=== PATIENT | male | born 1975 | race Caucasian/White ===

== ENCOUNTER 2016-10-02 15:00 | Emergency (ER) | payer OTHER ==
[~2016-10-02] VITALS: Ht 177.8 cm; Wt 130.9 kg
[2016-10-02 15:50] LABS: ADD MIUA? YES; BILIRUBIN NEGATIVE; BLOOD NEGATIVE; COLOR YELLOW ((YELLOW)); GLUCOSE (STRIP) NEGATIVE; KETONES NEGATIVE; LEUKOCYTES NEGATIVE; NITRITE NEGATIVE; PROTEIN (STRIP) 100; SPECIFIC GRAVITY 1.013 (1.000-1.030); UROBILINOGEN 0.2 MG/DL (0.2-1.0)
[2016-10-02 16:04] LABS: HEMATOCRIT 44.8 % (38.0-50.0); MCH 29.7 PG (29.0-34.0); MCHC 34.4 G/DL (30.0-36.0); MCV 86.5 FL (86-99); MEAN PLAT.VOLUME 10.5 uM^3 (9.0-12.4); PLATELET COUNT 330 K/uL (156-360); RBC DIS.WIDTH-CV 13.2 % (11.8-14.6); RBC DIS.WIDTH-SD 41.6 % (39-53); RED BLOOD COUNT 5.18 M/uL (4.00-5.50); WHITE BLOOD COUNT 11.1 K/uL (4.1-10.2)
[2016-10-02 16:10] LABS: BACTERIA RARE /HPF; EPITHELIAL CELLS NONE SEEN /HPF; GRANULAR CASTS 0-5 /LPF; HYALINE CASTS 0-5 /LPF; MUCUS TRACE /LPF; RED BLOOD CELLS 0-5 /HPF (0-5); WHITE BLOOD CELLS 0-5 /HPF (0-5)
[2016-10-02 16:15] LABS: CHLORIDE 104 mEq/L (99-109); POTASSIUM 4.1 mEq/L (3.7-5.4); SODIUM 137 mEq/L (136-147)
[2016-10-02 16:17] LABS: GLUCOSE 185 mg/dL (70-99)
[2016-10-02 16:18] LABS: ANION GAP 13 MEQ/L (2-14)
[2016-10-02 16:21] LABS: GFR ESTIMATE (CALCULATED) > 59 mL/min/
[2016-10-02 16:22] LABS: UREA NITROGEN (BUN) 13 mg/dL (9-23)
[2016-10-02 16:23] LABS: CREATINE KINASE 93 IU/L (1-294); TOTAL CK 93 IU/L (1-294)
[2016-10-02 16:31] LABS: CK-MB 1.4 ng/mL (0.0-4.9)
[2016-10-02] MEDS ORDERED: ULTRAM50 MG PO (18:07)
[2016-10-02] MEDS ORDERED: VALIUM5 MG PO (18:07)
[2016-10-02] MEDS ORDERED: METFORMIN HCL500 M1 PO (18:24)
[2016-10-02 18:25] VITALS: BP 137/82
[2016-10-02] MEDS ORDERED: ATORVASTATIN CA10 MG PO (18:25)
== END 2016-10-02 18:28 | disposition home or self-care (01) ==
LOC: EME 15:00
PROVIDERS: Physician Assistant
DX: R10.9 Unspecified abdominal pain (principal); M54.9 Dorsalgia, unspecified; E78.5 Hyperlipidemia, unspecified; E11.22 Type 2 diabetes mellitus with diabetic chronic kidney disease; I12.9 Hypertensive chronic kidney disease with stage 1 through stage 4 chronic kidney disease, or unspecified chronic kidney disease; N18.2 Chronic kidney disease, stage 2 (mild); Z87.442 Personal history of urinary calculi
CPT/HCPCS: 74176; 80048; 81003; 82550; 82553; 85027; 99281; 99285; J1885; J7030